=== PATIENT | female | born 1975 | race African-American/Black ===

== ENCOUNTER 2023-11-29 16:04 | Inpatient (IN) | payer OTHER ==
[~2023-11-29] VITALS: Ht 154.9 cm; Wt 122.5 kg
[~2023-11-29 16:04] MED LIST: ALBU-118 IH; ARIP20TA1 PO; BECL0.089 INH; BUPR300T70 PO; CYCL-711 PO; FERR-15 PO; GABA100C PO; HYDR200T65 PO; IBUP-2218 PO; LEVO5TAB12 PO; LID5T TP; LORA10TA19 PO; METF-1139 PO; MONT-72 PO; ONDA-188 PO; THO25 PO; TOP100 PO; [UNRECOGNIZED DRUG - CODE] OT
[2023-11-29 16:21] VITALS: BP 125/76; PULSE 90; RESP 20; TEMP 98.1; O2SAT 97
[2023-11-29 17:16] LABS: BASOPHILS # (AUTO) 0.1 K/uL (0.00-0.22); BASOPHILS % (AUTO) 0.7 % (0.0-2.0); EOSINOPHILS # (AUTO) 0.6 K/uL (0-0.4); EOSINOPHILS % (AUTO) 5.9 % (0.0-4.0); HEMATOCRIT 39.5 % (36-48); HEMOGLOBIN 13.1 g/dL (12.0-16.0); LYMPHOCYTES # (AUTO) 2.2 K/uL (2.5-16.5); MEAN CORPUSCULAR HEMOGLOBIN 27 pg (27-31); MEAN CORPUSCULAR HGB CONC 33 g/dL (33-37); MEAN CORPUSCULAR VOLUME 82.4 fL (80-94); MONOCYTES # (AUTO) 0.9 K/uL (0.8-1.0); MONOCYTES % (AUTO) 9.3 % (1.7-9.3); NEUTROPHILS # (AUTO) 6.3 K/uL (1.8-7.7); NEUTROPHILS % (AUTO) 62.1 % (42.2-75.2); PLATELET COUNT (AUTO) 277 K/uL (140-450); RED BLOOD CELL COUNT(AUTO) 4.79 MIL/uL (4.20-5.40); RED CELL DISTRIBUTION WIDTH 15.1 % (11.6-13.7); WHITE BLOOD COUNT (AUTO) 10.1 K/uL (4.8-10.8)
[2023-11-29] MEDS: ONDANSETRON 4 MG/2 ML VIAL IVP ONE (17:20)
[2023-11-29] MEDS: PANTOPRAZOLE 40 MG INJ VIAL IVP ONE (17:27)
[2023-11-29 17:30] LABS: ANION GAP 12.2 (8-16); CALCIUM 8.7 mg/dL (8.5-10.1); CARBON DIOXIDE 29.5 mmol/L (21-32); CREATININE 0.8 mg/dL (0.6-1.3); POTASSIUM 3.7 mmol/L (3.5-5.1)
[2023-11-29] MEDS: NACL 0.9% 1,000 ML IV ONE (17:30)
[2023-11-29 17:33] LABS: PARTIAL THROMBOPLASTIN TIME 42.4 secs (22-35.6)
[2023-11-29 17:34] LABS: ALBUMIN 2.7 g/dL (3.4-5.0); BILIRUBIN,DIRECT 0.1 mg/dL (0.0-0.3); TOTAL BILIRUBIN 0.1 mg/dL (0.0-1.0); TOTAL PROTEIN, SERUM 7.9 g/dL (6.4-8.2)
[2023-11-29] MEDS: fentaNYL citrate 0.05 MG/ML VIAL IVP ONE ×2 (17:35→19:30)
[2023-11-29 17:41] LABS: INR 5.58 (0.8-1.2)
[2023-11-29] MEDS ORDERED: ASPI-1205 PO (18:08)
[2023-11-29] MEDS ORDERED: TIOT18CA2 IH (18:14)
[2023-11-29] MEDS ORDERED: ESK300 PO (18:14)
[2023-11-29] MEDS ORDERED: ARIP5TAB8 PO (18:14)
[2023-11-29] MEDS ORDERED: LYR25 PO (18:14)
[2023-11-29] MEDS ORDERED: ALBU-150 PO (18:14)
[2023-11-29] MEDS ORDERED: AMAN-72 PO (18:14)
[2023-11-29] MEDS ORDERED: DUPI200S SQ (18:14)
[2023-11-29] MEDS ORDERED: LIRA6SOL SC (18:14)
[2023-11-29] MEDS: diphenhydrAMINE 50 MG/ML VIAL IVP ONE (20:00)
[2023-11-29] MEDS: PROCHLORPERAZINE 10 MG/2 ML VIAL IVP ONE (20:00)
[2023-11-29] MEDS: HYDROmorphone 1 MG/ML AMP IVP ONE (20:09)
[2023-11-29 20:52] LABS: BILIRUBIN,URINE NEGATIVE (NEGATIVE); BLOOD, URINE NEGATIVE (NEGATIVE); LEUKOCYTE ESTERASE ,URINE 1+ (NEGATIVE); NITRITE, URINE NEGATIVE (NEGATIVE); PROTEIN,URINE NEGATIVE (NEGATIVE); UGLUCOSE NEGATIVE (NEGATIVE); UROBILINOGEN,URINE 0.2 EU/dL (0.2 - 1)
[2023-11-29 20:53] LABS: APPEARANCE,URINE TURBID (CLEAR); COLOR,URINE AMBER (YELLOW)
[2023-11-29 21:02] LABS: AMPHETAMINE, URINE NEGATIVE ng/ml (NEG <=1000); BACTERIA,URINE 10-30 (MOD) /HPF (None Seen); BARBITURATE, URINE NEGATIVE ng/ml (NEG <=200); RBC,URINE 0-5 /HPF (0-5); SQUAMOUS EPITHELIAL CELL,UR 4-10 (MOD) /LPF (0-3 (FEW))
[2023-11-29 21:03] LABS: BENZODIAZEPINE, URINE NEGATIVE ng/mL (NEG <=200); CANNABINOID, URINE NEGATIVE ng/mL (NEG <=50); COCAINE, URINE NEGATIVE ng/mL (NEG <=300); OPIATE, URINE POSITIVE ng/mL (NEG <=2000); PHENCYCLIDINE SCREEN,URINE NEGATIVE ng/mL (NEG <=25)
[2023-11-29 21:28] VITALS: BP 113/59; PULSE 63; O2SAT 98
[2023-11-29 21:37] LABS: INR 1.2 (0.8-1.2); PARTIAL THROMBOPLASTIN TIME 30.1 secs (22-35.6); PROTHROMBIN TIME 12.5 secs (10.8-13.4)
[2023-11-29] MEDS ORDERED: cefTRIAXone 1,000 MG VIAL ONE (21:38)
[2023-11-30] VITALS (11 sets, daily range): BP systolic 109–129; BP diastolic 52–85; PULSE 52–75; RESP 18; TEMP 97–97.7; O2SAT 96–100
[2023-11-30] MEDS: fentaNYL citrate 0.05 MG/ML VIAL ONE (07:14)
[2023-11-30] MEDS: MIDAZOLAM 5 MG/5 ML VIAL ONE (07:14)
[2023-11-30] MEDS: diphenhydrAMINE 50 MG/ML VIAL ONE (07:14)
[2023-11-30] MEDS: MIDAZOLAM 2 MG/2 ML VIAL IV ONE (08:20)
[2023-11-30] MEDS: fentaNYL citrate 0.05 MG/ML VIAL IVP ONE (08:20)
[2023-11-30] MEDS: PANTOPRAZOLE 40 MG INJ VIAL IVP SCH (10:55)
[2023-11-30] MEDS: AZITHROMYCIN 500 MG INJ VIAL IV ONE (19:55)
[2023-11-30] MEDS: AZITHROMYCIN 500 MG in DEXTROSE 5% 250 ML IV SCH (19:55)
[2023-11-30] MEDS: HYDROXYCHLOROQUINE 200 MG TAB PO SCH (21:19)
[2023-11-30] MEDS: cefTRIAXone 1,000 MG VIAL ONE (21:20)
[2023-11-30] MEDS: HYDROmorphone 1 MG/ML AMP IVP PRN (21:22)
[2023-11-30] MEDS: MEDS-TO-BEDS MC SCH (21:38)
[2023-12-01] VITALS (7 sets, daily range): BP systolic 10–117; BP diastolic 54–68; PULSE 60–83; RESP 18–24; TEMP 96.6–98; O2SAT 96–100
[2023-12-01 06:40] LABS: BASOPHILS # (AUTO) 0.1 K/uL (0.00-0.22); BASOPHILS % (AUTO) 0.7 % (0.0-2.0); EOSINOPHILS # (AUTO) 0.5 K/uL (0-0.4); EOSINOPHILS % (AUTO) 4.4 % (0.0-4.0); HEMATOCRIT 39.1 % (36-48); HEMOGLOBIN 12.7 g/dL (12.0-16.0); LYMPHOCYTES # (AUTO) 2.2 K/uL (2.5-16.5); LYMPHOCYTES % (AUTO) 17.8 % (20.5-51.1); MEAN CORPUSCULAR HEMOGLOBIN 27 pg (27-31); MEAN CORPUSCULAR HGB CONC 33 g/dL (33-37); MEAN CORPUSCULAR VOLUME 82.9 fL (80-94); MONOCYTES # (AUTO) 0.9 K/uL (0.8-1.0); MONOCYTES % (AUTO) 7.1 % (1.7-9.3); NEUTROPHILS # (AUTO) 8.5 K/uL (1.8-7.7); PLATELET COUNT (AUTO) 294 K/uL (140-450); RED BLOOD CELL COUNT(AUTO) 4.71 MIL/uL (4.20-5.40); RED CELL DISTRIBUTION WIDTH 14.9 % (11.6-13.7); WHITE BLOOD COUNT (AUTO) 12.1 K/uL (4.8-10.8)
[2023-12-01 06:55] LABS: ALBUMIN 2.6 g/dL (3.4-5.0); ANION GAP 8.8 (8-16); CALCIUM 8.8 mg/dL (8.5-10.1); CARBON DIOXIDE 30.2 mmol/L (21-32); CREATININE 0.8 mg/dL (0.6-1.3); TOTAL BILIRUBIN 0.2 mg/dL (0.0-1.0); TOTAL PROTEIN, SERUM 7.8 g/dL (6.4-8.2)
[2023-12-01] MEDS: ALBUTEROL 0.083% 2.5 MG/3 ML NEBU INH PRN (08:48)
[2023-12-01] MEDS: ARIPiprazole 10 MG TAB PO SCH (09:53)
[2023-12-01] MEDS: LITHIUM CARBONATE 300 MG TAB PO SCH (09:53)
[2023-12-01] MEDS: MONTELUKAST SODIUM 10 MG TAB PO SCH (09:53)
[2023-12-01] MEDS: METOCLOPRAMIDE 10 MG/2 ML INJ VIAL IVP PRN (11:21)
[2023-12-01] MEDS ORDERED: guaiFENesin DM 200/20 MG-10 ML 10 ML UDC PO PRN (16:05)
[2023-12-01] MEDS: BENZONATATE 100 MG CAPLF PO SCH (17:00)
[2023-12-01] MEDS: AZITHROMYCIN 500 MG in DEXTROSE 5% 250 ML IV SCH (21:39)
[2023-12-01] MEDS: predniSONE 20 MG TAB PO SCH (21:41)
[2023-12-02 02:56] VITALS: PULSE 73; O2SAT 98
[2023-12-02 04:00] VITALS: PULSE 66; O2SAT 99
[2023-12-02 06:44] LABS: BASOPHILS % (AUTO) 0.3 % (0.0-2.0); EOSINOPHILS % (AUTO) 0.1 % (0.0-4.0); HEMATOCRIT 41.4 % (36-48); HEMOGLOBIN 13.7 g/dL (12.0-16.0); LYMPHOCYTES # (AUTO) 0.8 K/uL (2.5-16.5); LYMPHOCYTES % (AUTO) 7.6 % (20.5-51.1); MEAN CORPUSCULAR HEMOGLOBIN 27 pg (27-31); MEAN CORPUSCULAR HGB CONC 33 g/dL (33-37); MEAN CORPUSCULAR VOLUME 82.2 fL (80-94); MONOCYTES # (AUTO) 0.2 K/uL (0.8-1.0); MONOCYTES % (AUTO) 1.9 % (1.7-9.3); NEUTROPHILS # (AUTO) 9.6 K/uL (1.8-7.7); NEUTROPHILS % (AUTO) 90.1 % (42.2-75.2); PLATELET COUNT (AUTO) 326 K/uL (140-450); RED BLOOD CELL COUNT(AUTO) 5.04 MIL/uL (4.20-5.40); WHITE BLOOD COUNT (AUTO) 10.7 K/uL (4.8-10.8)
[2023-12-02 07:09] LABS: ANION GAP 12.7 (8-16); CALCIUM 9.6 mg/dL (8.5-10.1); CARBON DIOXIDE 27.8 mmol/L (21-32); CREATININE 0.9 mg/dL (0.6-1.3); POTASSIUM 4.5 mmol/L (3.5-5.1)
[2023-12-02 08:00] VITALS: BP 102/67; PULSE 72; RESP 18; TEMP 97.6; O2SAT 99
[2023-12-02 12:00] VITALS: BP 103/65; PULSE 73; RESP 18; TEMP 97.4; O2SAT 98
[2023-12-02] MEDS ORDERED: GUAI5LIQ5 PO (15:36)
[2023-12-02] MEDS ORDERED: PRED20TA5 PO (15:36)
[2023-12-02] MEDS ORDERED: PANT40EC PO (15:36)
[2023-12-02] MEDS ORDERED: DOXY-690 PO (15:37)
[2023-12-02 16:00] VITALS: BP 105/63; PULSE 72; RESP 18; TEMP 97.3; O2SAT 99
[2023-12-02 16:34] VITALS: BP 103/65; PULSE 18; RESP 18; TEMP 97.4
== END 2023-12-02 17:37 | disposition home or self-care (01) | DRG 378 ==
LOC: MED 16:04 → MTU 21:28 → MED 21:42 → MTU 22:55
PROVIDERS: ADMIT Internal Medicine; ATTEND Internal Medicine
PROC: 5A09357 Assistance with Respiratory Ventilation, Less than 24 Consecutive Hours, Continuous Positive Airway Pressure (ICD-10-PCS; 2023-11-29)
PROC: 5A09357 Assistance with Respiratory Ventilation, Less than 24 Consecutive Hours, Continuous Positive Airway Pressure (ICD-10-PCS; 2023-11-30)
PROC: 5A09357 Assistance with Respiratory Ventilation, Less than 24 Consecutive Hours, Continuous Positive Airway Pressure (ICD-10-PCS; 2023-12-01)
PROC: 0DB68ZX Excision of Stomach, Via Natural or Artificial Opening Endoscopic, Diagnostic (ICD-10-PCS; principal; 2023-12-02)
PROC: 5A09357 Assistance with Respiratory Ventilation, Less than 24 Consecutive Hours, Continuous Positive Airway Pressure (ICD-10-PCS; 2023-12-02)
DX: K29.71 Gastritis, unspecified, with bleeding (principal); D68.62 Lupus anticoagulant syndrome; Z68.43 Body mass index [BMI] 50.0-59.9, adult; E44.1 Mild protein-calorie malnutrition; J20.9 Acute bronchitis, unspecified; F31.9 Bipolar disorder, unspecified; M32.9 Systemic lupus erythematosus, unspecified; E11.9 Type 2 diabetes mellitus without complications; M79.7 Fibromyalgia; E66.01 Morbid (severe) obesity due to excess calories; J45.909 Unspecified asthma, uncomplicated; Z88.5 Allergy status to narcotic agent; Z88.8 Allergy status to other drugs, medicaments and biological substances; Z88.1 Allergy status to other antibiotic agents; Z91.041 Radiographic dye allergy status; Z79.899 Other long term (current) drug therapy; Z87.19 Personal history of other diseases of the digestive system; Z79.82 Long term (current) use of aspirin; K20.90 Esophagitis, unspecified without bleeding
CPT/HCPCS: 36415; 71045; 80048; 80053; 80076; 80305; 81001; 82948; 83690; 85025; 85610; 85730; 86886; 86900; 86901; 87040; 87081; 87086; 88305; 88312; 88313; 88342; 93005; 94640; 94660; 96361; 96365; 96375; 97116; 97163-GP; 99285; C9113; J0456; J0696; J0780; J1170; J1200; J2250; J2405; J2765; J3010; J7060; J7512; J7613

== ENCOUNTER 2024-01-07 00:10 | Emergency (ER) | payer OTHER ==
[~2024-01-07] VITALS: Ht 152.4 cm; Wt 99.8 kg
[~2024-01-07 00:10] MED LIST changes: +ALBU-150 PO; +AMAN-72 PO; +ASPI-1205 PO; -BECL0.089 INH; -BUPR300T70 PO; -CYCL-711 PO; +DOXY-690 PO; +DUPI200S SQ; +ESK300 PO; -GABA100C PO; +GUAI5LIQ5 PO; -LEVO5TAB12 PO; +LIRA6SOL SC; +LYR25 PO; -METF-1139 PO; -ONDA-188 PO; +PANT40EC PO; +PRED20TA5 PO; -THO25 PO; +TIOT18CA2 IH; -TOP100 PO; -[UNRECOGNIZED DRUG - CODE] OT
[2024-01-07 00:23] VITALS: BP 125/86; PULSE 90; RESP 18; TEMP 96.8
[2024-01-07 02:02] LABS: BASOPHILS # (AUTO) 0.1 K/uL (0.00-0.22); BASOPHILS % (AUTO) 1.1 % (0.0-2.0); EOSINOPHILS # (AUTO) 0.5 K/uL (0-0.4); EOSINOPHILS % (AUTO) 3.9 % (0.0-4.0); HEMATOCRIT 39.4 % (36-48); HEMOGLOBIN 12.8 g/dL (12.0-16.0); LYMPHOCYTES # (AUTO) 2.8 K/uL (2.5-16.5); LYMPHOCYTES % (AUTO) 22.4 % (20.5-51.1); MEAN CORPUSCULAR HEMOGLOBIN 27 pg (27-31); MEAN CORPUSCULAR HGB CONC 33 g/dL (33-37); MONOCYTES % (AUTO) 7.7 % (1.7-9.3); NEUTROPHILS # (AUTO) 8.2 K/uL (1.8-7.7); NEUTROPHILS % (AUTO) 64.9 % (42.2-75.2); PLATELET COUNT (AUTO) 310 K/uL (140-450); RED BLOOD CELL COUNT(AUTO) 4.75 MIL/uL (4.20-5.40); RED CELL DISTRIBUTION WIDTH 15.3 % (11.6-13.7); WHITE BLOOD COUNT (AUTO) 12.7 K/uL (4.8-10.8)
[2024-01-07] MEDS: HYDROmorphone PFS 2 MG/ML SYR IVP ONE (02:05)
[2024-01-07] MEDS: KETOROLAC 30 MG/ML VIAL IVP ONE (02:13)
[2024-01-07] MEDS: NACL 0.9% 1,000 ML IV ONE (02:14)
[2024-01-07 02:22] LABS: CARBON DIOXIDE 27.6 mmol/L (21-32); POTASSIUM 3.6 mmol/L (3.5-5.1)
[2024-01-07 02:28] LABS: ALBUMIN 3.1 g/dL (3.4-5.0); TOTAL BILIRUBIN 0.3 mg/dL (0.0-1.0); TOTAL PROTEIN, SERUM 7.3 g/dL (6.4-8.2)
[2024-01-07 02:35] LABS: LACTIC ACID 0.8 mmol/L (0.4-2.0)
[2024-01-07 03:52] LABS: APPEARANCE,URINE CLEAR (CLEAR); BILIRUBIN,URINE NEGATIVE (NEGATIVE); BLOOD, URINE NEGATIVE (NEGATIVE); COLOR,URINE YELLOW (YELLOW); LEUKOCYTE ESTERASE ,URINE 1+ (NEGATIVE); NITRITE, URINE NEGATIVE (NEGATIVE); PROTEIN,URINE NEGATIVE (NEGATIVE); UGLUCOSE NEGATIVE (NEGATIVE); UROBILINOGEN,URINE 0.2 EU/dL (0.2 - 1)
[2024-01-07 04:07] LABS: BACTERIA,URINE 10-30 (MOD) /HPF (None Seen); MUCUS,URINE 1+ /LPF (None Seen); RBC,URINE 0-5 /HPF (0-5); SQUAMOUS EPITHELIAL CELL,UR 0-3 (FEW) /LPF (0-3 (FEW))
[2024-01-07] MEDS ORDERED: cefTRIAXone 1,000 MG VIAL ONE (04:38)
[2024-01-07] MEDS ORDERED: FOSF3PAC PO (05:31)
[2024-01-07] MEDS ORDERED: TRAM-748 PO (05:31)
[2024-01-07 06:45] VITALS: BP 125/86; PULSE 90; RESP 18; TEMP 96.8
[2024-01-07] MEDS ORDERED: PHEN-1877 PO (06:50)
[2024-01-07] MEDS ORDERED: NAPR-337 PO (06:50)
[2024-01-07] MEDS ORDERED: KETOROLAC 30 MG/ML VIAL IVP ONE (06:50)
== END 2024-01-07 06:45 | disposition home or self-care (01) ==
LOC: MED 00:10
DX: N39.0 Urinary tract infection, site not specified (principal); R11.2 Nausea with vomiting, unspecified; J45.909 Unspecified asthma, uncomplicated; E11.9 Type 2 diabetes mellitus without complications; I10 Essential (primary) hypertension; Z90.49 Acquired absence of other specified parts of digestive tract; Z79.899 Other long term (current) drug therapy; Z79.82 Long term (current) use of aspirin; Z88.5 Allergy status to narcotic agent; Z88.1 Allergy status to other antibiotic agents; Z88.8 Allergy status to other drugs, medicaments and biological substances; Z88.2 Allergy status to sulfonamides
CPT/HCPCS: 36415; 71045; 74176; 80048; 80076; 81001; 83605; 84702; 85025; 87040; 87086; 96361; 96365; 96375; 99285; J0696; J1170; J1885; J7030; Q0092